=== PATIENT | male | born 1990 | race Caucasian/White ===

== ENCOUNTER 2017-08-16 20:47 | Emergency (ER) | payer MEDICARE, MEDICAID ==
[~2017-08-16] VITALS: Ht 160 cm; Wt 91.0 kg
[~2017-08-16 20:47] MED LIST: AMOXICILLIN500 MG PO; ATIVAN1 MG PO; AUGMENTIN875TAB PO; CIPRO500 MG OR; CLONAZEP ODT1 MG OR; CLONAZEP ODT2 MG OR; DEPAKOTE ER500 MG OR; DIAZEPAM5 MG PO; LORTAB 5-325 MG1 TAB PO; MOTRIN400 MG PO; NAPROSYN500 MG PO; PENICILLN VK500 MG PO; QUETIAPINE FUM400 MG PO; SEROQUEL100 MG PO; SEROQUEL400 M1 PO; ULTRAM50 M1 PO; XANAX0.25 MG PO; ZYPREXA20 MG OR; [UNRECOGNIZED DRUG - REMARK] OR
[2017-08-16 21:15] LABS: HEMATOCRIT 43.7 % (39.0-50.0); HEMOGLOBIN 15.2 g/dl (14.0-18.0); IMMATURE GRANULOCYTES 0.4 % (0.0-1.0); MEAN CELL VOLUME 84.5 fL CALC (80.0-100.0); MEAN CORPUSCULAR HGB 29.4 pG CALC (26.0-32.0); MEAN CORPUSCULAR HGB CONC 34.8 g/L CALC (32.0-36.0); NEUT# 5.3 thou/uL (1.82-7.42); RED BLOOD COUNT 5.17 mill/uL (4.70-6.10); RED CELL DISTRI WIDTH 12.3 % (11.5-15.5)
[2017-08-16 21:27] LABS: ALBUMIN 4.8 g/dL (3.2-5.0); ALKALINE PHOSPHATASE 67 u/l (38-126); ANION GAP 24 (6-22 (CALC)); BILIRUBIN, TOTAL 0.2 mg/dL (0.0-1.4); BUN 15 mg/dL (9-20); BUN/CREATININE RATIO 14 (12-20 (CALC)); CARBON DIOXIDE 19 mmol/l (22-30); CHLORIDE 109 mmol/l (95-108); CREATININE 1.1 mg/dL (0.7-1.3); GFR > 60 ML/MIN (>=60 (CALC)); GFR FOR AFR.AMER. > 60 ML/MIN (>=60 (CALC)); MAGNESIUM 1.8 mg/dL (1.6-2.3); POTASSIUM 3.6 mmol/l (3.5-5.1); SGOT/AST 20 u/l (17-59); SGPT/ALT 24 u/l (21-72); SODIUM 148 mmol/l (137-146); TOTAL PROTEIN 8.1 g/dL (6.3-8.2)
[2017-08-16 21:30] LABS: ETHYL ALCOHOL 162 mg/dl (0-30)
[2017-08-16 23:00] LABS: URINE BILIRUBIN - DIPSTICK NEGATIVE (NEGATIVE); URINE BLOOD DIPSTICK NEGATIVE (NEGATIVE); URINE COLOR YELLOW; URINE GLUCOSE - DIPSTICK NEGATIVE (NEGATIVE); URINE KETONE NEGATIVE (NEGATIVE); URINE LEUK ESTERASE NEGATIVE (NEGATIVE); URINE NITRITE - DIPSTICK NEGATIVE (Negative); URINE PROTEIN - DIPSTICK 30 mg/dL (NEG-TRACE); URINE UROBILINOGEN - DIPSTICK 0.2 E.U./dL (0.2)
[2017-08-16 23:06] LABS: BARBITURATES NEGATIVE (NEGATIVE); COCAINE NEGATIVE (NEGATIVE); METHADONE NEGATIVE (NEGATIVE); OXCYCODONE POSITIVE (NEGATIVE); TETRAHYDROCANNABIONOL POSITIVE (NEGATIVE); TRICYLIC ANTIDEPRESSANTS NEGATIVE (NEGATIVE)
[2017-08-16 23:07] LABS: URINE CLARITY CLEAR
[2017-08-16 23:17] LABS: URINE WBC 0-2 WBC/hpf (0-5)
[2017-08-16 23:18] LABS: URINE BACTERIA FEW hpf; URINE COARSE GRANULAR CAST FEW lpf; URINE FINE GRAN CAST FEW lpf; URINE HYALINE CAST FEW lpf (NONE-RARE); URINE MUCUS FEW hpf (NONE-FEW)
[2017-08-16 23:46] VITALS: BP 110/63
== END 2017-08-17 00:14 ==
LOC: EDBD 20:47 → ED 20:47
PROVIDERS: Family Medicine
DX: F19.10 Other psychoactive substance abuse, uncomplicated (principal); F10.120 Alcohol abuse with intoxication, uncomplicated; Y90.6 Blood alcohol level of 120-199 mg/100 ml; R00.0 Tachycardia, unspecified